=== PATIENT | male | born 1950 | race Caucasian/White ===

== ENCOUNTER 2021-02-16 10:07 | Emergency (ER) | payer MEDICARE, OTHER ==
[2021-02-16 10:29] VITALS: BP 142/78; PULSE 80
--- NOTE | 2021-02-16 10:42 | EDM.PDOC ---
ED HPI GENERAL MEDICAL PROBLEM - General Chief Complaint: General Stated Complaint: STILL HAVING SYMPTOMS OF COVID / GURGLING / COUGHI Time Seen by Provider: 02/16/21 10:30 Source of Information: Reports: Patient, RN Notes Reviewed History Limitations: Reports: No Limitations - History of Present Illness INITIAL COMMENTS - FREE TEXT/NARRATIVE: This patient presents to the emergency department for evaluation of cough and "gurgling in his chest." He was diagnosed with Covid on February 04 and has had a cough since that time. He states that he thinks he has a Covid pneumonia at this point. He was not vaccinated. He has started himself on Zithromax and is in the process of completing his second Z-Cirilo. He denies chest pain or shortness of breath and in fact was outside shoveling snow this morning. He has no nausea or vomiting but does have some diarrhea. Appetite is fair and he is complaining of fatigue. He denies other concerns or complaints. - Related Data Allergies Allergy/AdvReac Type Severity Reaction Status Date / Time No Known Allergies Allergy Verified 02/04/21 13:30 Home Meds: Home Meds Aspirin [Halfprin] 81 mg PO DAILY 03/08/16 [History] Glucosam/Chond/Collagen/Hyalur [Glucosamine Chondroitin] 1,200 mg PO DAILY 03/08/16 [History] Mvi, Adult No.2 without Vit K [M.v.i.-12] 1 tab PO DAILY 03/08/16 [History] [place]-3 Fatty Acids [Fish Oil] 1 tab PO DAILY 03/08/16 [History] Simvastatin 10 mg PO DAILY 03/08/16 [History] Ubidecarenone [Co Q-10] 1 tab PO DAILY 03/08/16 [History] Past Medical History HEENT History: Reports: Impaired Vision Cardiovascular History: Reports: None Gastrointestinal History: Reports: Other (See Below) Other Gastrointestinal History: epigastric pain x 3 months Musculoskeletal History: Reports: Back Pain, Chronic, Osteoarthritis Neurological History: Reports: Migraines Oncologic (Cancer) History: Reports: None Dermatologic History: Reports: Eczema, Other (See Below) Other Dermatologic History: eczema on hand. - Infectious Disease History Infectious Disease History: Reports: Measles, Mumps - Past Surgical History HEENT Surgical History: Reports: Adenoidectomy, Tonsillectomy Musculoskeletal Surgical History: Reports: Knee Replacement, Shoulder Surgery, Other (See Below) Other Musculoskeletal Surgeries/Procedures:: Right RTC repair 2006. Long head biceps rupture 2019 Social & Family History - Family History Family Medical History: No Pertinent Family History - Tobacco Use Tobacco Use Status *Q: Never Tobacco User - Caffeine Use Caffeine Use: Reports: Coffee, Soda ED ROS GENERAL - Review of Systems Review Of Systems: Comprehensive ROS is negative, except as noted in HPI. ED EXAM, GENERAL - Physical Exam Exam: See Below Exam Limited By: No Limitations General Appearance: Alert, No Apparent Distress Eye Exam: Bilateral Eye: PERRL Ears: Normal External Exam Nose: Normal Inspection Throat/Mouth: Normal Inspection Head: Atraumatic, Normocephalic Neck: Normal Inspection, Full Range of Motion Respiratory/Chest: No Respiratory Distress, Lungs Clear, Normal Breath Sounds, No Accessory Muscle Use, Other (Some upper airway coarseness heard) Extremities: Normal Inspection Psychiatric: Normal Affect, Normal Mood Skin Exam: Warm, Dry, Intact Course - Vital Signs Last Recorded V/S: Last Vital Signs Temp 36.1 C 02/16/21 10:22 Pulse 80 02/16/21 10:22 Resp 16 02/16/21 10:22 BP 142/78 H 02/16/21 10:22 Pulse Ox 96 02/16/21 10:22 - Re-Assessments/Exams Free Text/Narrative Re-Assessment/Exam: This patient presents for evaluation of continuing cough. He has had a known Covid positive test 11 days ago but continues to cough. There are no signs at this point of serious bacterial infections, otitis media, retropharyngeal abscess, epiglottitis, peritonsillar abscess, strep pharyngitis, pneumonia, sinusitis, meningitis, bacteremia. Given clear lungs, no fever, no hypoxia and no respiratory distress I do not feel this patient needs a chest x-ray at this point as the probability of secondary pneumonia is very unlikely. There are no concerning gastrointestinal symptoms at this point and no signs of dehydration. I believe his intermittent diarrhea is related to his overuse of antibiotics. He should be seen by his primary care provider in 7-10 days if he is not better, sooner if he is worse in any way. 02/16/21 10:45 Departure - Departure Time of Disposition: 10:45 Disposition: Home, Self-Care 01 Condition: Fair Clinical Impression: COVID - Discharge Information *PRESCRIPTION DRUG MONITORING PROGRAM REVIEWED*: Not Applicable Instructions: COVID-19: What to Do If You Are Sick- [facility] [place] (05/07/2020) Referrals: Brenda Guzman MD [Primary Care Provider] - Forms: ED Department Discharge Sepsis Event Note (ED) - Evaluation Sepsis Screening Result: No Definite Risk - Focused Exam Vital Signs: Vital Signs Temp Pulse Resp BP Pulse Ox 02/16/21 10:22 36.1 C 80 16 142/78 H 96
== END 2021-02-16 10:55 | disposition home or self-care (01) ==
LOC: LB.ED 10:07
DX: U07.1 COVID-19 (principal); M19.90 Unspecified osteoarthritis, unspecified site; Z79.82 Long term (current) use of aspirin; Z79.899 Other long term (current) drug therapy
CPT/HCPCS: 99283